=== PATIENT | female | born 1960 | race Caucasian/White ===

== ENCOUNTER 2020-10-08 07:01 | Day surgery (SDC) | payer BC ==
[~2020-10-08] VITALS: Ht 162.6 cm; Wt 76.2 kg
[~2020-10-08 07:01] MED LIST: BENADRYL25 MG PO; CYCL10 PO; ESTR1; IBUP800 PO; LOPE2C PO; Naprosyn500 MG PO; Norco 5-325 Ta1 EACH PO; Norco 7.5-3251 EACH PO; OXYACE10 PO; OXYACE5T PO; PROM25 PO; TIZANIDINE HCL4 MG
--- NOTE | 2020-10-08 07:31 | NUR ---
ARRIVED INTO [facility].Ambulatory in Day Surgery. History, Chart, Medications and Allergies reviewed before start of procedure.Lungs clear T/O to Auscultation. Patient States Post-Procedure ride home has been arranged.
--- NOTE | 2020-10-08 12:39 | NUR ---
RECIEVED PATIENT INTO [facility] VSS AWAKE BUT GROGGY THREE DRESSINGS INTACT.
--- NOTE | 2020-10-08 13:30 | NUR ---
TOOK OVER PATIENT CARE AFTER REPORT WAS RECIEVED. Patient up to Ambulate independently. Gait steady. Discharge instructions reviewed with patient. Patient verbalizes understanding. Copy given to patient to take home.Lungs clear T/O to Auscultation. Patient States Post-Procedure ride home has been arranged. Discharged via wheelchair to private car for ride home.
== END 2020-10-08 14:05 | disposition home or self-care (01) ==
LOC: ORSCMMR 07:01 → ORD 08:30 → ORSCMMR 08:30
PROVIDERS: Surgery
PROC: 0YU54JZ Supplement Right Inguinal Region with Synthetic Substitute, Percutaneous Endoscopic Approach (ICD-10-PCS; principal; 2020-10-08 08:30)
PROC: 8E0W4CZ Robotic Assisted Procedure of Trunk Region, Percutaneous Endoscopic Approach (ICD-10-PCS; principal; 2020-10-08 08:30)
DX: K40.90 Unilateral inguinal hernia, without obstruction or gangrene, not specified as recurrent (principal); E78.5 Hyperlipidemia, unspecified; F41.9 Anxiety disorder, unspecified; Z79.899 Other long term (current) drug therapy
CPT/HCPCS: 49650; S2900; A9270; C1781; J0690; J1100; J1885; J2250; J2370; J2405; J2704; J3010; J7120

== ENCOUNTER 2021-09-04 10:30 | Inpatient (IN) | payer BC ==
[~2021-09-04] VITALS: Ht 162.6 cm; Wt 72.6 kg
[2021-09-04 11:06] LABS: BASOPHILS ABSOLUTE AUTO 0.08 K/mm3 (0.00-0.23); BASOPHILS PERCENT AUTO 1 % (0-2); EOSINOPHILS ABSOLUTE AUTO 0.06 K/mm3 (0.00-0.68); EOSINOPHILS PERCENT AUTO 0 % (0-6); Hematocrit 39.2 % (33.0-51.0); Hemoglobin 13.3 g/dL (11.5-16.0); IMMATURE GRAN ABSOLUTE AUTO 0.05 K/mm3 (0.00-0.10); IMMATURE GRAN PERCENT AUTO 0 % (0-1); LYMPHOCYTES ABSOLUTE AUTO 2.32 K/mm3 (0.84-5.20); LYMPHOCYTES PERCENT AUTO 14 % (21-46); MONOCYTES ABSOLUTE AUTO 1.36 K/mm3 (0.16-1.47); MONOCYTES PERCENT AUTO 8 % (4-13); Mean Corpuscular HGB 30.8 pg (26.0-34.0); Mean Corpuscular HGB Conc 33.9 g/dL (31.5-36.5); Mean Corpuscular Volume 91 fL (80-100); Mean Platelet Volume 10.4 fL (9.1-12.4); NEUTROPHILS ABSOLUTE AUTO 12.36 K/mm3 (1.96-9.15); NEUTROPHILS PERCENT AUTO 76 % (41-73); Platelet Count 329 K/mm3 (150-400); RDW Coefficient Variation 12.1 % (11.7-14.2); RDW Standard Deviation 39.9 fL (35.1-46.3); Red Blood Cell Count 4.32 M/mm3 (3.80-5.20); White Blood Cell Count 16.23 K/mm3 (4.00-11.30)
[2021-09-04 11:23] LABS: Source, Urine Clean Catch
[2021-09-04 11:26] LABS: Appearance, Urine Clear (Clear); Bilirubin, Urine Neg (Neg); Blood, Urine 3+ (Neg); Color, Urine Yellow (P-Yellow); Glucose Qualitative, Urine Neg (Neg); Ketones, Urine 2+ (Neg); Leukocyte Esterase, Urine Neg (Neg); Nitrite, Urine Neg (Neg); Protein, Urine Neg (Neg); Specific Gravity, Urine 1.015 (1.003-1.022); Urobilinogen, Urine 2+ (Normal)
[2021-09-04 11:36] LABS: Alanine Aminotransfer (ALT/SGP 28 U/L (12-78); Albumin, Blood 3.5 g/dL (3.4-5.0); Alk Phos 87 U/L (50-136); Anion Gap 4 mmol/L (6-16); Aspartate Aminotrans (AST/SGOT 16 U/L (12-37); Bilirubin, Total 1.1 mg/dL (0.1-1.0); Blood Urea Nitrogen 12 mg/dL (8-24); Bun/Creatinine Ratio 16.7 (12.0-20.0); CO2, Blood 29 mmol/L (21-32); Calcium, Blood 8.7 mg/dL (8.5-10.1); Chloride, Blood 106 mmol/L (98-108); Creatinine, Blood 0.72 mg/dL (0.40-1.00); Globulin, Blood 3.6 g/dL (2.2-4.0); Glomerular Filtration Rate >60 (60-); Glucose, Blood 95 mg/dL (70-99); Sodium, Blood 139 mmol/L (136-145); Total Protein, Blood 7.1 g/dL (6.4-8.2)
[2021-09-04 11:37] LABS: Bacteria Rare /hpf; Mucus Light (0-Heavy); Squamous Epithelial Cells Rare /hpf (Few); White Blood Cells, Urine 0-2 /hpf (0-5)
--- NOTE | 2021-09-04 18:19 | NUR ---
PATIENT ARRIVED TO THE FLOOR VIA STETCHER AT ABOUT 1630 TODAY FROM THE ER. PATIENT AAOX4, ABLE TO MAKE NEEDS AND WANTS KNOWN. UP AD JAHAIRA AND STEADY ON FEET. CALL LIGHT AND WATER IN EASY REACH. PATIENT COMPLAINED OF NAUSEA, MEDICATED PER ORDERS SEE EMAR. COMPLAINS OF RLQ PAIN BUT DENIES NEED FOR PAIN MED AT THIS TIME. WILL MONITOR.
--- NOTE | 2021-09-04 22:04 | NUR ---
CALL PLACED TO PHYSICIAN DUE TO PT VOMITING, ORDERS TO BE PUT IN BY PHYSICIAN.
--- NOTE | 2021-09-05 04:10 | NUR ---
SHIFT SUMMARY A/O X4 IND IN RM. N/V AT BEGINING OF SHIFT, SINCE [facility] GIVEN NO EPISODES OF VOMITING. PT SLEEPING COMFORTABLY THROUGHOUT SHIFT. VSS. ABDOMEN SOFT AND TENDER TO TOUCH, NON DISTENDED. VOIDING WELL. NS @ 125/HR. NO PAIN AT THIS TIME, WILL CONTINUE TO MONITOR AND REPORT TO ONCOMING RN.
[2021-09-05 05:15] LABS: BASOPHILS ABSOLUTE AUTO 0.06 K/mm3 (0.00-0.23); BASOPHILS PERCENT AUTO 0 % (0-2); EOSINOPHILS ABSOLUTE AUTO 0.03 K/mm3 (0.00-0.68); EOSINOPHILS PERCENT AUTO 0 % (0-6); Hemoglobin 11.7 g/dL (11.5-16.0); IMMATURE GRAN ABSOLUTE AUTO 0.05 K/mm3 (0.00-0.10); IMMATURE GRAN PERCENT AUTO 0 % (0-1); LYMPHOCYTES ABSOLUTE AUTO 2.47 K/mm3 (0.84-5.20); LYMPHOCYTES PERCENT AUTO 17 % (21-46); MONOCYTES ABSOLUTE AUTO 1.28 K/mm3 (0.16-1.47); MONOCYTES PERCENT AUTO 9 % (4-13); Mean Corpuscular HGB Conc 33.4 g/dL (31.5-36.5); Mean Corpuscular Volume 93 fL (80-100); Mean Platelet Volume 10.9 fL (9.1-12.4); NEUTROPHILS ABSOLUTE AUTO 10.49 K/mm3 (1.96-9.15); NEUTROPHILS PERCENT AUTO 73 % (41-73); Platelet Count 295 K/mm3 (150-400); RDW Coefficient Variation 12.2 % (11.7-14.2); RDW Standard Deviation 41.5 fL (35.1-46.3); Red Blood Cell Count 3.78 M/mm3 (3.80-5.20); White Blood Cell Count 14.38 K/mm3 (4.00-11.30)
[2021-09-05 05:40] LABS: Alanine Aminotransfer (ALT/SGP 31 U/L (12-78); Albumin, Blood 2.9 g/dL (3.4-5.0); Albumin/Globulin Ratio 0.9 (0.8-1.8); Alk Phos 76 U/L (50-136); Anion Gap 6 mmol/L (6-16); Aspartate Aminotrans (AST/SGOT 19 U/L (12-37); Bilirubin, Total 0.7 mg/dL (0.1-1.0); Blood Urea Nitrogen 12 mg/dL (8-24); Bun/Creatinine Ratio 18.4 (12.0-20.0); CO2, Blood 29 mmol/L (21-32); Chloride, Blood 107 mmol/L (98-108); Creatinine, Blood 0.65 mg/dL (0.40-1.00); Globulin, Blood 3.4 g/dL (2.2-4.0); Glomerular Filtration Rate >60 (60-); Glucose, Blood 109 mg/dL (70-99); Magnesium, Blood 2.4 mg/dL (1.6-2.4); Potassium, Blood 3.6 mmol/L (3.5-5.5); Sodium, Blood 142 mmol/L (136-145); Total Protein, Blood 6.3 g/dL (6.4-8.2)
--- NOTE | 2021-09-05 09:03 | NUR ---
ASSUMED CARE OF PATIENT THIS AM. PATIENT LYING IN BED WITH NO SIGNS OR SYMPTOMS ACUTE DISTRESS NOTED. CALL LIGHT AND WATER IN EASY REACH. ABLE TO MAKE NEEDS AND WANTS KNOWN. NO COMPLAINTS OF PAIN OR NAUSEA AT THIS TIME. DR BARAHONA WAS HERE TO SEE PATIENT. WILL MONITOR.
--- NOTE | 2021-09-05 17:30 | NUR ---
PATIENT CURRENTLY SITTIN UP IN BED WITH NO SIGNS OR SYMPTOMS ACUTE DISTRESS NOTED. CALL LIGHT AND WATER IN EASY REACH. ABLE TO MAKE NEEDS AND WANTS KNOWN. PATIENT COMPLAINS OF RLQ PAIN BUT DENIES NEED FOR PAIN MEDS. NO COMPLAINTS OF NAUSEA TODAY. PATIENT UP ADLIB TODAY. PATIENT DID HAVE DIARREA X 1 TODAY. NO OTHER ISSUES TO NOTE. WILL CONTINUE TO MONITOR.
--- NOTE | 2021-09-06 05:30 | NUR ---
SHIFT SUMMARY PATIENT FOUND TO BE A PLESANT LADY WHO IS A&OX4 AND IND IN ROOM. VSS. ON RA. PAIN TO ABDOMEN AT TOLERABLE LEVEL OF 4/10 AND DENIED NEED FOR PAIN MEDS. PASSING GAS. TOLERATING CLD WITH NO NAUSEA OR VOMITING. WATERY LOOSE STOOLS NOTED. IS READY TO ADVANCE HER DIET TODAY AND STATES SHE IS HUNGRY.SMALL SNACKS GIVEN BEFORE BED. VODIING WITHOUT ISSUE WITH BATHROOM PRIVLEDGES. IV FLUIDS FINISHED AND ABX INFUSED PER ORDER. NO ACUTE CONCERNS AT THIS TIME. WILL CONTINUE PLAN OF CARE UNTIL REPORT GIVEN TO UAGUSTINE MICHAEL.
[2021-09-06] MEDS ORDERED: CIPR500 PO (11:23)
[2021-09-06] MEDS ORDERED: ONDA4ODT MM (11:23)
[2021-09-06] MEDS ORDERED: PANT20 PO (11:23)
[2021-09-06] MEDS ORDERED: METR500 PO (11:24)
--- NOTE | 2021-09-06 11:33 | NUR ---
DICHARGE: PATIENT GIVEN DC INSTUCTIONS AT THIS TIME, PATIENT VERBALIZED UNDERSTANDING. PRESCRIPTIONS SENT TO [facility], IV REMOVED. NO SIGNS OR SYMPTOMS ACUTE DISTRESS NOTED, NO COMPLAINTS OF PAIN OR NAUSEA.
--- NOTE | 2021-09-07 15:39 | NUR ---
Per Dr. Shah discharge appropriate on: 09/06/21. Patient does not oppose discharge. Patient discharged to her residence. Transportation provided by family. Patient has strong family support. Patient has a safe home environment with running water, heat, electricity and sewage. [facility] will coordinate hospital follow up with PCP Dr. Froilan Navas. No barriers to discharge.
== END 2021-09-06 12:02 | disposition home or self-care (01) | DRG 392 ==
LOC: ER 10:30 → ERHOLD 13:56 → SURS 13:56
PROVIDERS: Emergency Medicine; ADMIT Family Medicine
DX: K57.00 Diverticulitis of small intestine with perforation and abscess without bleeding (principal); M54.9 Dorsalgia, unspecified; G89.29 Other chronic pain; Z79.899 Other long term (current) drug therapy; Z90.49 Acquired absence of other specified parts of digestive tract; Z90.710 Acquired absence of both cervix and uterus; Z28.21 Immunization not carried out because of patient refusal
CPT/HCPCS: 36415; 74177; 80053; 81001; 83690; 83735; 85025; 96365-59; 96366; 96367; 96372; 96375; 99285-25; A9270; C9113; G0378; J0295; J0696; J1170; J1644; J2270; J2405; J2550; J7030; J7050; Q9967

== ENCOUNTER 2021-12-06 08:29 | Day surgery (SDC) | payer BC ==
[~2021-12-06] VITALS: Ht 162.6 cm; Wt 71.5 kg
[~2021-12-06 08:29] MED LIST changes: +CIPR500 PO; +METR500 PO; +ONDA4ODT MM; +PANT20 PO
== END 2021-12-06 10:50 | disposition home or self-care (01) ==
LOC: ORSCSDS 08:29
PROVIDERS: Surgery
PROC: 0DJD8ZZ Inspection of Lower Intestinal Tract, Via Natural or Artificial Opening Endoscopic (ICD-10-PCS; principal; 2021-12-06 10:45)
DX: Z12.11 Encounter for screening for malignant neoplasm of colon (principal); K64.8 Other hemorrhoids
CPT/HCPCS: J2704; J7120

== ENCOUNTER 2023-03-14 08:45 | Emergency (ER) | payer BC ==
[~2023-03-14] VITALS: Ht 162.6 cm; Wt 68.0 kg
[2023-03-14 09:17] LABS: BASOPHILS ABSOLUTE AUTO 0.04 K/mm3 (0.00-0.23); BASOPHILS PERCENT AUTO 1 % (0-2); EOSINOPHILS ABSOLUTE AUTO 0.18 K/mm3 (0.00-0.68); EOSINOPHILS PERCENT AUTO 3 % (0-6); Hematocrit 39.7 % (33.0-51.0); IMMATURE GRAN ABSOLUTE AUTO 0.01 K/mm3 (0.00-0.10); IMMATURE GRAN PERCENT AUTO 0 % (0-1); LYMPHOCYTES ABSOLUTE AUTO 3.47 K/mm3 (0.84-5.20); LYMPHOCYTES PERCENT AUTO 47 % (21-46); MONOCYTES ABSOLUTE AUTO 0.55 K/mm3 (0.16-1.47); MONOCYTES PERCENT AUTO 8 % (4-13); Mean Corpuscular HGB 31.3 pg (26.0-34.0); Mean Corpuscular HGB Conc 35.3 g/dL (31.5-36.5); Mean Corpuscular Volume 89 fL (80-100); Mean Platelet Volume 10.4 fL (9.1-12.4); NEUTROPHILS ABSOLUTE AUTO 3.07 K/mm3 (1.96-9.15); NEUTROPHILS PERCENT AUTO 42 % (41-73); Platelet Count 314 K/mm3 (150-400); RDW Coefficient Variation 11.9 % (11.7-14.2); RDW Standard Deviation 38.7 fL (35.1-46.3); Red Blood Cell Count 4.48 M/mm3 (3.80-5.20); White Blood Cell Count 7.32 K/mm3 (4.00-11.30)
[2023-03-14 09:41] LABS: Albumin, Blood 3.8 g/dL (3.4-5.0); Albumin/Globulin Ratio 1.2 (0.8-1.8); Bilirubin, Total 0.4 mg/dL (0.1-1.0); Bun/Creatinine Ratio 22.9 (12.0-20.0); Calcium, Blood 9.1 mg/dL (8.5-10.1); Creatinine, Blood 0.65 mg/dL (0.40-1.00); Globulin, Blood 3.3 g/dL (2.2-4.0); Potassium, Blood 3.7 mmol/L (3.5-5.5); Total Protein, Blood 7.1 g/dL (6.4-8.2)
[2023-03-14 13:00] VITALS: BP 145/87
[2023-03-14] MEDS ORDERED: CELE100 PO (13:19)
== END 2023-03-14 13:20 | disposition home or self-care (01) ==
LOC: ER 08:45
PROVIDERS: Emergency Medicine
DX: R07.9 Chest pain, unspecified (principal)
CPT/HCPCS: 71046; 80053; 84484; 85025; 93005; 93010; 96374; 96375; 99285-25; J1885; J2060

== ENCOUNTER 2025-07-28 08:40 | Day surgery (SDC) | payer OTHER ==
[~2025-07-28] VITALS: Ht 162.6 cm; Wt 76.7 kg
[~2025-07-28 08:40] MED LIST changes: +Bupivacaine HCl 0.25% 30 ML Injection ONE; +CELE100 PO; +CeFAZolin Sodium 2,000 MG VIAL ONE; +FentaNYL Citrate 50 MCG/ML 2 ML Injection ONE; +Midazolam HCl 1MG / ML 2ML Vial ONE; +NS 1,000 ML IV ONE; +Tranexamic Acid 100 ML IV ONE
--- NOTE | 2025-07-28 10:30 | NUR ---
07/28/25 1030 [facility] PRE OP BLOCK COMPLETED WITHOUT ISSUE.PT ON PULSE OX T/O AT 2L.
[2025-07-28] MEDS ORDERED: Ondansetron HCl 2 MG / ML 2ML Vial ONE (11:54)
[2025-07-28] MEDS ORDERED: Dexamethasone Sod Phos 10 MG/ML 1ML VIAL ONE (11:54)
[2025-07-28] MEDS ORDERED: Ketorolac Tromethamine 30mg Vial ONE (11:54)
[2025-07-28] MEDS ORDERED: Sugammadex Sodium 200 MG/2ML SDV (100 MG/ML) ONE (11:57)
--- NOTE | 2025-07-28 13:40 | NUR ---
07/28/25 6930 ELLA LU PT INSTRUCTED TO DO NOT LIFT HER ARM AWAY FROM BODY. KEEP ARM IN SLING AT ALL TIMES EXCEPT WHEN DRESSING AND SHOWERING
[2025-07-28 13:42] VITALS: BP 128/71
== END 2025-07-28 13:35 | disposition home or self-care (01) ==
LOC: ORSCSDS 08:40 → ORD 07-30 10:15
PROVIDERS: Orthopaedic Surgery Sports Medicine
PROC: 0LM14ZZ Reattachment of Right Shoulder Tendon, Percutaneous Endoscopic Approach (ICD-10-PCS; principal; 2025-07-28 09:45)
PROC: 0R5J4ZZ Destruction of Right Shoulder Joint, Percutaneous Endoscopic Approach (ICD-10-PCS; principal; 2025-07-28 09:45)
PROC: 0RNJ4ZZ Release Right Shoulder Joint, Percutaneous Endoscopic Approach (ICD-10-PCS; principal; 2025-07-28 09:45)
DX: S46.001A Unspecified injury of muscle(s) and tendon(s) of the rotator cuff of right shoulder, initial encounter (principal); S43.431A Superior glenoid labrum lesion of right shoulder, initial encounter; M75.21 Bicipital tendinitis, right shoulder; W13.3XXA Fall through floor, initial encounter; E78.5 Hyperlipidemia, unspecified; F41.9 Anxiety disorder, unspecified; E66.9 Obesity, unspecified; Z68.29 Body mass index [BMI] 29.0-29.9, adult; G62.9 Polyneuropathy, unspecified
CPT/HCPCS: C1713; J0166; J0690; J1100; J1885; J2250; J2405; J2704; J3010; J7030; J7120